=== PATIENT | female | born 1990 | race Caucasian/White ===

== ENCOUNTER 2017-04-04 16:05 | Emergency (ER) | payer SELFPAY ==
[2017-04-04 17:11] LABS: BASOPHILS 0.3 % (0-2); EOSINOPHILS 2.4 % (0-7); HEMATOCRIT 35.4 % (36.0-48.0); IMMATURE GRANULOCYTES 0.3 % (0-5); MCHC 31.1 g/dL (31.0-37.0); MCV 77.1 fL (80.0-100.0); MEAN PLATELET VOLUME 9.6 fL (7.4-10.4); PLATELET COUNT 229 10x3/uL (130-400); RBC 4.59 10x6/uL (4.00-5.40); RDW 18.1 % (11.5-14.5); WBC 7.4 10x3/uL (4.8-10.8)
[2017-04-04 17:22] LABS: APPEARANCE HAZY (CLEAR); BILIRUBIN NEGATIVE (NEGATIVE); COLOR DK YELLOW (YELLOW); GLUCOSE NEGATIVE (NEGATIVE); KETONE NEGATIVE (NEGATIVE); NITRITE NEGATIVE (NEGATIVE); PROTEIN NEGATIVE (NEGATIVE); UROBILINOGEN NORMAL (NORMAL)
[2017-04-04 17:28] LABS: WHITE CELLS - URINE 25-50 /hpf (0-5)
[2017-04-04 17:29] LABS: AMORPHOUS SEDIMENT <1+ /lpf (NONE SEEN); BACTERIA FEW /hpf (NONE SEEN)
[2017-04-04 18:16] LABS: ALBUMIN 3.4 g/dL (3.4-5.0); ALKALINE PHOSPHATASE 65 U/L (46-116); ALT (SGPT) 42 U/L (10-68); BILIRUBIN - TOTAL 0.11 mg/dL (0.2-1.3); CALC OSMOLALITY 276 mosm/kg (275-300); CALCIUM 8.7 mg/dL (8.5-10.1); CARBON DIOXIDE 22.9 mmol/L (21.0-32.0); CHLORIDE - SERUM 104 mmol/L (98-107); CREATININE - SERUM 0.6 mg/dL (0.6-1.3); GLUCOSE 92 mg/dL (74-106); POTASSIUM - SERUM 3.8 mmol/L (3.5-5.1); SODIUM 140 mmol/L (136-145); UREA NITROGEN 8 mg/dL (7-18); eGFR NON AFRICAN AMERICAN > 90 mL/min (90-120)
[2017-04-04 18:35] LABS: HCG - QUANTITATIVE (MATERNAL) 8060 mIU/mL
== END 2017-04-04 21:25 | disposition home or self-care (01) ==
LOC: D.ER 16:05
PROVIDERS: Emergency Medicine
DX: O23.41 Unspecified infection of urinary tract in pregnancy, first trimester (principal); Z3A.08 8 weeks gestation of pregnancy; R10.9 Unspecified abdominal pain

== ENCOUNTER 2017-07-30 18:29 | Outpatient (CLI) | payer MEDICAID ==
[2017-07-30 19:31] LABS: COLOR DK YELLOW (YELLOW)
[2017-07-30 19:32] LABS: APPEARANCE CLEAR (CLEAR); BILIRUBIN NEGATIVE (NEGATIVE); GLUCOSE NEGATIVE (NEGATIVE); KETONE NEGATIVE (NEGATIVE); NITRITE NEGATIVE (NEGATIVE); PROTEIN NEGATIVE (NEGATIVE); SPECIFIC GRAVITY 1.025 (1.005-1.020); UROBILINOGEN NORMAL (NORMAL)
== END 2017-07-30 19:57 | disposition home or self-care (01) ==
LOC: D.LDO 18:29
PROVIDERS: Obstetrics & Gynecology
DX: O26.899 Other specified pregnancy related conditions, unspecified trimester (principal); Z3A.00 Weeks of gestation of pregnancy not specified; R10.32 Left lower quadrant pain

== ENCOUNTER 2017-09-05 16:30 | Emergency (ER) | payer MEDICAID ==
[2017-09-05 18:02] LABS: BASOPHILS 0.1 % (0-2); EOSINOPHILS 0.3 % (0-7); HEMATOCRIT 35.6 % (36.0-48.0); HEMOGLOBIN 11.5 g/dL (12-16); IMMATURE GRANULOCYTES 0.5 % (0-5); LYMPHOCYTES 5.3 % (15-50); MCH 25.5 pg (26.0-34.0); MCHC 32.3 g/dL (31.0-37.0); MCV 78.9 fL (80.0-100.0); MONOCYTES 3.6 % (2-11); NEUTROPHILS 90.2 % (40-80); PLATELET COUNT 219 10x3/uL (130-400); RBC 4.51 10x6/uL (4.00-5.40); RDW 14.7 % (11.5-14.5); WBC 10.1 10x3/uL (4.8-10.8)
[2017-09-05 18:16] LABS: ALBUMIN 2.7 g/dL (3.4-5.0); ALKALINE PHOSPHATASE 116 U/L (46-116); ALT (SGPT) 16 U/L (10-68); BILIRUBIN - TOTAL 0.42 mg/dL (0.2-1.3); CALC OSMOLALITY 272 mosm/kg (275-300); CALCIUM 7.7 mg/dL (8.5-10.1); CHLORIDE - SERUM 104 mmol/L (98-107); CREATININE - SERUM 0.5 mg/dL (0.6-1.3); GLUCOSE 102 mg/dL (74-106); POTASSIUM - SERUM 3.6 mmol/L (3.5-5.1); PROTEIN - SERUM 6.5 g/dL (6.4-8.2); SODIUM 138 mmol/L (136-145); UREA NITROGEN 5 mg/dL (7-18); eGFR NON AFRICAN AMERICAN > 90 mL/min (90-120)
[2017-09-05 18:44] LABS: APPEARANCE CLEAR (CLEAR); BILIRUBIN NEGATIVE (NEGATIVE); COLOR YELLOW (YELLOW); GLUCOSE NEGATIVE (NEGATIVE); KETONE NEGATIVE (NEGATIVE); NITRITE POSITIVE (NEGATIVE); PROTEIN NEGATIVE (NEGATIVE); UROBILINOGEN NORMAL (NORMAL)
[2017-09-05 18:45] LABS: BACTERIA MANY /hpf (NONE SEEN); RED CELLS - URINE OCC /hpf (0-5); WHITE CELLS - URINE 0-5 /hpf (0-5)
== END 2017-09-05 20:45 | disposition home or self-care (01) ==
LOC: D.ER 16:30
PROVIDERS: Emergency Medicine
DX: N39.0 Urinary tract infection, site not specified (principal); A08.4 Viral intestinal infection, unspecified

== ENCOUNTER → 2017-09-23 22:23 | Outpatient (CLI) | payer MEDICAID ==
[2017-09-23 23:01] LABS: APPEARANCE HAZY (CLEAR); BACTERIA FEW /hpf (NONE SEEN); BILIRUBIN NEGATIVE (NEGATIVE); COLOR YELLOW (YELLOW); EPITHELIAL CELLS 0-5 /hpf (0-5); GLUCOSE NEGATIVE (NEGATIVE); KETONE SMALL mg/dL (NEGATIVE); NITRITE NEGATIVE (NEGATIVE); PROTEIN NEGATIVE (NEGATIVE); RED CELLS - URINE NONE SEEN /hpf (0-5); SPECIFIC GRAVITY 1.015 (1.005-1.020); UROBILINOGEN NORMAL (NORMAL)
== END | disposition home or self-care (01) ==
LOC: D.LDO 22:23
PROVIDERS: Obstetrics & Gynecology
DX: O26.893 Other specified pregnancy related conditions, third trimester (principal); Z3A.29 29 weeks gestation of pregnancy; M54.5 Low back pain; R10.9 Unspecified abdominal pain

== ENCOUNTER 2017-11-20 08:40 | Inpatient (IN) | payer MEDICAID ==
[~2017-11-20] VITALS: Ht 170.2 cm; Wt 103.4 kg
--- NOTE | ~2017-11-20 | OP ---
PATIENT NAME: IRIS WHELAN MEDICAL RECORD: [id number] :92 LOCATION:[facility] ADMISSION DATE:11/20/17 SURGEON: DEVYN WICK MD DATE OF OPERATION: 11/20/2017 Delivery Note PREDELIVERY DIAGNOSIS: Active labor at term. POSTDELIVERY DIAGNOSIS: Mother delivered at term. PROCEDURE: Vaginal delivery. ATTENDING PHYSICIAN: Devyn Wick MD ANESTHETIC: Continuous lumbar epidural. FINDINGS: Viable male infant, OP presentation with evidence of an asynclitic presentation during first stage of labor. Apgars are 99 and the weight is still pending at the time of this dictation. First-degree lacerations without repair. Placenta spontaneous and intact. ESTIMATED BLOOD LOSS: 300 cc. DISPOSITION: Mother and infant recovered in the room. TRANSINT:[id number] Voice Confirmation ID: [id number] DOCUMENT ID: [id number] DEVYN WICK MD at 0703 CC: [id number] DICTATION DATE: 11/20/171952 RESIN FILTERER: 11/20/172116 DIS IN 11/21/17 [address] [place] [address]
[2017-11-20 08:56] LABS: APPEARANCE CLEAR (CLEAR); BILIRUBIN NEGATIVE (NEGATIVE); COLOR YELLOW (YELLOW); GLUCOSE NEGATIVE (NEGATIVE); KETONE NEGATIVE (NEGATIVE); NITRITE NEGATIVE (NEGATIVE); PROTEIN NEGATIVE (NEGATIVE); UROBILINOGEN NORMAL (NORMAL)
[2017-11-20 09:58] LABS: HEMOGLOBIN 10.2 g/dL (12-16); MCH 23.2 pg (26.0-34.0); MCHC 30.9 g/dL (31.0-37.0); MCV 75.2 fL (80.0-100.0); MEAN PLATELET VOLUME 9.8 fL (7.4-10.4); RBC 4.39 10x6/uL (4.00-5.40); WBC 9.2 10x3/uL (4.8-10.8)
[2017-11-20 11:13] VITALS: BP 138/88; Ht 170.2 cm; Wt 103.4 kg
[2017-11-20] MEDS ORDERED: CYCLOBENZAPRINE10 MG PO (11:13)
[2017-11-20 22:23] VITALS: BP 137/82
[2017-11-21 06:59] LABS: HEMATOCRIT 30.5 % (36.0-48.0); HEMOGLOBIN 9.2 g/dL (12-16); MCH 22.5 pg (26.0-34.0); MCHC 30.2 g/dL (31.0-37.0); MCV 74.8 fL (80.0-100.0); MEAN PLATELET VOLUME 10.4 fL (7.4-10.4); RBC 4.08 10x6/uL (4.00-5.40); RDW 15.8 % (11.5-14.5); WBC 11.3 10x3/uL (4.8-10.8)
[2017-11-21 07:40] VITALS: BP 126/76
[2017-11-21 15:03] VITALS: BP 127/64
[2017-11-22 07:29] LABS: RAPID PLASMA REAGIN Non Reactive (Non Reactive)
== END 2017-11-21 20:30 | disposition home or self-care (01) | DRG 775 ==
LOC: D.LDO 08:40 → D.LD 10:27
PROVIDERS: Obstetrics & Gynecology
PROC: 10E0XZZ Delivery of Products of Conception, External Approach (ICD-10-PCS; principal; 2017-11-20)
DX: O32.2XX0 Maternal care for transverse and oblique lie, not applicable or unspecified (principal); O70.0 First degree perineal laceration during delivery; Z3A.37 37 weeks gestation of pregnancy; Z37.0 Single live birth

== ENCOUNTER → 2018-06-29 19:26 | Outpatient (CLI) | payer MEDICAID ==
[2017-11-20 11:13] VITALS: BMI 35.8
[~2018-06-29 19:26] MED LIST: CYCLOBENZAPRINE10 MG PO
== END | disposition home or self-care (01) ==
LOC: D.MAMMO 06-06 11:30
DX: Z12.31 Encounter for screening mammogram for malignant neoplasm of breast (principal)

== ENCOUNTER 2019-07-23 07:25 | Day surgery (SDC) | payer MEDICAID ==
[2019-07-20 13:13] LABS: BASOPHILS 0.5 % (0-2); EOSINOPHILS 4.9 % (0-7); HEMATOCRIT 42.6 % (36.0-48.0); HEMOGLOBIN 13.9 g/dL (12-16); IMMATURE GRANULOCYTES 0.2 % (0-5); LYMPHOCYTES 26.2 % (15-50); MCH 28.7 pg (26.0-34.0); MCHC 32.6 g/dL (31.0-37.0); MONOCYTES 6.2 % (2-11); PLATELET COUNT 211 10x3/uL (130-400); RBC 4.84 10x6/uL (4.00-5.40); RDW 13.4 % (11.5-14.5); WBC 8.5 10x3/uL (4.8-10.8)
[2019-07-20 13:26] LABS: CALC OSMOLALITY 279 mosm/kg (275-300); CALCIUM 8.9 mg/dL (8.5-10.1); CARBON DIOXIDE 26.5 mmol/L (21.0-32.0); CHLORIDE - SERUM 106 mmol/L (98-107); CREATININE - SERUM 0.7 mg/dL (0.6-1.3); SODIUM 142 mmol/L (136-145); UREA NITROGEN 11 mg/dL (7-18); eGFR NON AFRICAN AMERICAN > 90 mL/min (90-120)
[2019-07-20 13:27] LABS: GLUCOSE 65 mg/dL (74-106)
[~2019-07-23] VITALS: Ht 170.2 cm; Wt 98.4 kg
--- NOTE | ~2019-07-23 | OP ---
PATIENT NAME: IRIS WHELAN MEDICAL RECORD: [id number] :92 LOCATION:[facility] ADMISSION DATE: SURGEON: DEVYN DAMON MD DATE OF OPERATION: 07/23/2019 PREOPERATIVE DIAGNOSES: 1. Pelvic pain. 2. Dysfunctional uterine bleeding. POSTOPERATIVE DIAGNOSES: 1. Pelvic pain. 2. Dysfunctional uterine bleeding. PROCEDURES: 1. Diagnostic laparoscopy. 2. D&C. SURGEON: Devyn Damon MD ROAD MACHINE OPERATOR: Wojciech Hdez ANESTHESIOLOGIST: Dr. Feliz ANESTHESIA: General. FINDINGS: Uterus is enlarged and slightly boggy. Both tubes were unremarkable. Ovaries have smooth capsules. What was visualized of the abdominal anatomy was unremarkable. ESTIMATED BLOOD LOSS: Minimal. SPECIMENS REMOVED: Endometrial curettings. SPECIMEN DISPOSITION: Pathology. ESTIMATED BLOOD LOSS: Minimal. FLUIDS: 800 cc of lactated Ringer's. URINE OUTPUT: Quantity sufficient cath prior to this procedure. COMPLICATIONS: None. DRAINS: None. INDICATIONS: The patient is a 29-year-old multiparous female with a history of dyspareunia and pelvic pain. The patient also reports recent onset of dysfunctional bleeding. The patient is consented for diagnostic laparoscopy and dilation and curettage. DESCRIPTION OF PROCEDURE: After informed consent was assured, the patient was taken to the operating room where anesthetic was obtained. The patient is then placed in Yellofin stirrups and prepped and draped in usual sterile fashion. An incision was made at the umbilicus to accommodate a 5-mm trocar, which was inserted without difficulty and pneumoperitoneum was developed. With the OPERATIVE REPORT [id number] IRIS WHELAN patient in steep Trendelenburg position, the accessory ports placed 2 fingerbreadths above the symphysis in the midline and the bowel swept free of the pelvis. The above findings were encountered. After visualization of the abdomen and pelvis, the procedure was discontinued and the pneumoperitoneum was released. All trocars were removed and skin was closed with a subcuticular stitch and Dermabond applied. The legs were malpositioned for the vaginal portion of this case. An operative speculum was introduced in the vagina. The cervix grasped with a single-tooth tenaculum and then serially dilated to accommodate a #2 curette. This curette was passed gently to the fundus and withdrawn with good cry obtained throughout. Specimens were placed on Telfa and removed from the vaginal vault. A single-tooth tenaculum was removed and a ring forceps placed over the tenaculum site to obtain hemostasis. Sponge, lap, needle counts were correct times 2. The patient was awakened and went to the recovery room in stable condition with the removal of the ring forceps. TRANSINT:[id number] Voice Confirmation ID: [id number] DOCUMENT ID: [id number] DEVYN DAMON MD CC: [id number] DICTATION DATE: 07/23/19916 POLISHING PAD MOUNTER: 07/23/19 1106 [facility] [address] [place] [id number]
[~2019-07-23 07:25] MED LIST changes: +ALBUTEROL SULF8.5 GM INH; +BUSPIRONE HCL30 MG PO; +CALCIUM 600 +1 EAC3 PO; +GABAPENTIN300 MG PO; +HYDROCODON-ACE1 EAC7 PO; +LISINOPRIL-HCT1 EAC4 PO; +MELOXICAM 15MG PO; +ROPINIROLE HCL0.5 MG PO; +ZANAFLEX4 MG PO
--- NOTE | 2019-07-23 07:42 | NUR ---
VERIFIED BY TELEPHONE NO ANTIBIOTIC ORDERED PER DR. DAMON.
[2019-07-23 07:57] VITALS: BP 133/92; Ht 170.2 cm; Wt 98.4 kg
[2019-07-23 08:15] LABS: HCG URINE NEGATIVE (NEGATIVE)
--- NOTE | 2019-07-23 10:03 | NUR ---
9827 CONSULTED ANESTHESIA REGARDING INCREASED ANXIETY. PATIENT VERY TEARFUL. SHE STATES SHE HAS HISTORY OF ANXIETY. VERBAL ORDERS RECEIVED FROM EDE BEE CRNA / DR. CANTRELL TO ADMINISTER VERSED 2MG X1 NOW IN PACU. ORDERS RECEIVED AND IMPLEMENTED.
--- NOTE | 2019-07-23 13:15 | NUR ---
1130 MEDICATED IM FOR NAUSEA 1155 RECIEVED A FULL LIQ TRAY 1215 IV REMOVED AND NAUSEA EASING 1235 D/C HOME
== END 2019-07-23 12:35 | disposition home or self-care (01) ==
LOC: D.OPS 07:25 → D.PAN 08:00 → D.OPS 09:30
PROVIDERS: Anesthesiology; ATTEND Obstetrics & Gynecology
DX: R10.2 Pelvic and perineal pain (principal); N93.8 Other specified abnormal uterine and vaginal bleeding

== ENCOUNTER 2019-08-06 05:05 | Day surgery (SDC) | payer MEDICAID ==
[2019-08-03 10:17] LABS: HEMATOCRIT 44.7 % (36.0-48.0); HEMOGLOBIN 14.7 g/dL (12-16); LYMPHOCYTES 27.8 % (15-50); MCH 28.3 pg (26.0-34.0); MCHC 32.9 g/dL (31.0-37.0); MCV 86.1 fL (80.0-100.0); MEAN PLATELET VOLUME 10.3 fL (7.4-10.4); RBC 5.19 10x6/uL (4.00-5.40); RDW 13.1 % (11.5-14.5); WBC 6.7 10x3/uL (4.8-10.8)
[2019-08-03 10:26] LABS: PLATELET COUNT 293 10x3/uL (130-400)
[2019-08-03 10:30] LABS: UDS - AMPHET NEGATIVE QUAL (NEGATIVE); UDS - BARB NEGATIVE QUAL (NEGATIVE); UDS - BENZO NEGATIVE QUAL (NEGATIVE); UDS - COCAINE NEGATIVE QUAL (NEGATIVE); UDS - OPIATE NEGATIVE QUAL (NEGATIVE); UDS - PCP NEGATIVE QUAL (NEGATIVE); UDS - THC POSITIVE QUAL (NEGATIVE)
[2019-08-03 10:39] LABS: CALC OSMOLALITY 281 mosm/kg (275-300); CALCIUM 9.2 mg/dL (8.5-10.1); CARBON DIOXIDE 32.1 mmol/L (21.0-32.0); CHLORIDE - SERUM 104 mmol/L (98-107); CREATININE - SERUM 0.7 mg/dL (0.6-1.3); GLUCOSE 75 mg/dL (74-106); POTASSIUM - SERUM 3.8 mmol/L (3.5-5.1); SODIUM 142 mmol/L (136-145); UREA NITROGEN 12 mg/dL (7-18); eGFR NON AFRICAN AMERICAN > 90 mL/min (90-120)
[2019-08-06] VITALS (18 sets, daily range): BP systolic 101–137; BP diastolic 56–91; Ht 170.2 cm; Wt 99.1 kg
[~2019-08-06] VITALS: Ht 170.2 cm; Wt 99.1 kg
--- NOTE | 2019-08-06 06:14 | NUR ---
0605-PT. TEARFUL AND STATES "IV IS NOT RIGHT", IV DISCONTINUED, SITE WITHOUT SIGNS OF INFILTRATION OR INFECTION. COTTON BALL AND BANDAID APPLIED. DEFER TO ANESTHESIA.
[2019-08-06 06:17] LABS: HCG URINE NEGATIVE (NEGATIVE)
--- NOTE | 2019-08-06 10:19 | NUR ---
REC'D BACK TO ROOM 1273 FROM PACU, AWAKE, ALERT AND ORIENTED X4. TEARFUL, GRIMACING AND CLENCHING ABD. PT STATES THAT SHE "IS HURTING SO BAD." VSS. BREATH SOUNDS CLEAR AND EQUAL BILATERALLY. ABD SOFT, NONDISTENDED, BOWEL SOUNDS PRESENT AND HYPOACTIVE X4. C/O NAUSEA AT THIS TIME. 4 ABD INCISIONS NOTED (RLQ, LLQ, MID PUBIC REGION, AND UMIBILICUS), ALL INCISIONS WELL APPROXIMATED WITH GLUE INTACT, NO DRAINAGE NOTED AND NO S/S OF INFECTION NOTED. SCD'S PLACED ON BLE. ICE PACK PLACED. PT'S FATHER AT BEDSIDE. 500 MLS YELLOW URINE EMPTIED FROM RIVERA. BED IN LOW POSITION WITH SRUP X2. CALL LIGHT AND PHONE WITHIN REACH. WILL CONTINUE TO MONITOR.
--- NOTE | 2019-08-06 10:34 | NUR ---
PAIN 8/10, MEDS GIVEN PER EMAR. ICE CHIPS PROVIDED. PERICARE DONE. PADS AND CHUX CHANGED. PERIPAD PLACED. PT LIFTS BUTTOCKS WITHOUT DIFFICULTY. EMESIS BAG PROVIDED. V/S REMAIN STABLE. O2 DECREASED TO 2 L/MIN. WILL CONTINUE TO MONITOR.
--- NOTE | 2019-08-06 11:29 | NUR ---
PAIN NOW 5/10. DENIES NAUSEA. SPRITE PROVIDED PER REQUEST. 100 MLS CLEAR LIGHT YELLOW URINE EMPTIED FROM RIVERA, NO VAG BLEEDING/DISCHARGE NOTED. PT RESTING QUIETLY AND DENIES ADDITIONAL NEEDS. BED IN LOW POSITION WITH SRUP X2. CALL LIGHT AND PHONE WITHIN REACH. WILL CONTINUE TO MONITOR. INCENTIVE SPIROMETER DONE X5, COUGH AND DEEP BREATHING DONE WITH GOOD EFFORT. ADDITIONAL PILLOW PROVIDED PER PT REQUEST. VSS. WILL CONTINUE TO MONITOR.
--- NOTE | 2019-08-06 12:28 | NUR ---
PT CONTINUES TO DENY NAUSEA. REGULAR TRAY PROVIDED ORDERED. B/P CUFF AND SPO2 MONITOR REMOVED PER PT REQUEST TO EAT. GABAPENTIN GIVEN PER ORDER AND PT EDUCATED ON MED, VERBALIZES UNDERSTANDING. I&O DONE. SPRITES AND ICE CHIPS PROVIDED. NO VAG BLEEDING/DISCHARGE NOTED. LIGHTS ON PER PT REQUEST. POC DISCUSSED, VERBALIZES UNDERSTANDING. SCD'S ON BLE.
--- NOTE | 2019-08-06 13:04 | NUR ---
CALLS VIA CALL LIGHT. RN TO BEDSIDE, PT DRY HEAVING. REPORTS FEELING NAUSEATEF OLLOWING EATING PART OF LUNCH TRAY AND C/O FEELING HOT. VSS. BLANKET REMOVED. ROOM TEMP DECREASED. I&O DONE. SALAD TAKEN FROM ROOM, PT INSTRUCTED THAT DIET WOULD BE BACK TO CLEAR LIQUIDS AND ADVANCED TOLERTAED, VERBALIZES UNDERSTANDING. SCD'S ON BLE. BED IN LOW POSITION WITH SRUP X2. CL AND PHONE WITHIN REACH.
--- NOTE | 2019-08-06 14:08 | NUR ---
IN ROOM TO CHANGE IVF, ZOFRAN GIVEN FOR NAUSEA, INQUIRED REGARDING PAIN LEVEL, STATES AT 3-4 NOW. ASKED IF READY FOR PAIN MED. STATED "NOT YET", COMFORT MEASURES PROVIDED, PILLOW PLACED TO ABDOMEN. NO FURTHER NEEDS VOICED.
--- NOTE | 2019-08-06 14:46 | NUR ---
C/O ABD AND INCISIONAL DISCOMFORT 7-01/06, HYDROMORPHONE GIVEN PER ORDER AND PT REQUEST. DENIES NAUSEA. CHICKEN BROTH AND JELLO PROVIDED. INCENTIVE SPIROMETER DONE AND COUGH AND DEEP BREATHING DONE. PT REPOSITIONS TO R SIDE INDEPENDENTLY. SCD'S REMAIN ON BLE. WILL CONTINUE TO MONITOR.
--- NOTE | 2019-08-06 14:53 | NUR ---
DR. DAMON CALLS UNIT. UPDATE ON PT GIVEN. ORDERS REC'D TO KEEP PT ON CLEAR LIQUIDS UNTIL P 1900.
--- NOTE | 2019-08-06 15:06 | NUR ---
TORADOL GIVEN PER ORDER. DENIES ADDITIONAL NEEDS. PT UPDATED ON POC CHANGES, VERBALIZES UNDERSTANDING AND DENIES ADDITIONAL NEEDS. BED IN LOW POSITION WIHT SRUP X2. CALL LIGHT AND PHONE WITHIN REACH. LINENS PROVIDED FOR PT'S FATHER PER REQUEST.
--- NOTE | 2019-08-06 15:22 | NUR ---
PAIN REASSESSMENT COMPLETED, LAYING ON R SIDE RESTING WITH EYES CLOSED. RESP AND UNLABORED, NO S/S OF DISTRESS NOTED. BED IN LOW POSITION WITH SRUP X2. CALL LIGHT AND PHONE WITHIN REACH. WILL CONTINUE TO MONITOR.
--- NOTE | 2019-08-06 16:06 | NUR ---
REMAINS ON R SIDE. RESTING WITH EYES CLOSED, RESP REGULAR AND UNLABORED, NO S/S OF DISTRESS NOTED. BED IN LOW POSITION WITH SRUP X2. CALL LIGHT AND PHONE WITHIN REACH. WILL CONTINUE TO MONITOR.
--- NOTE | 2019-08-06 17:13 | NUR ---
RIVERA D/C'D WITH 900 MLS CLEAR LIGHT YELLOW URINE PRESENT. OOB PER PT REQUEST AND TO BR WITH STANDBY ASSIST, STEADY GAIT NOTED. PERICARE DONE PER PT. GOWN AND LINENS CHANGED. PAD AND PANTIES PROVIDED. AMBULATORY IN ROOM, REQUEST TO SIT ON EDGE OF BED. DENIES NAUSEA AND REQUESTS TO EAT REGULAR DIET. WILL NOTIFY DR. ADMON. BED IN LOW POSITION WITH SRUP X2. CALL LIGHT PLACED WITHIN PT REACH. STATES THAT HER DAD WILL BE BRINGING HER CLOTHES SHORTLY. ENCOURAGED TO AMB IN HALLWAY AND CALL FOR ASSIST PRN, VERBALIZES UNDERSTANDING. INSTRUCTED ON NEED TO MEASURE AT LEAST 2-3 VOIDS. ICE WATER, POPICLE, JELLO, AND SPRITE PROVIDED PER REQUEST. NEW ICE PACK PROVIDED.
--- NOTE | 2019-08-06 17:45 | NUR ---
SITTING UP ON EDGE OF BED. C/O ABD AND INCISIONAL DISCOMFORT 7-810, 2 TABS PERCOCET GIVEN PER ORDER. PT CONTINUES TO DENY NAUSEA. EDUCATED ON MEDS, VERBALIZES UNDERSTANDING AND DENIES QUESTIONS.
--- NOTE | 2019-08-06 17:58 | NUR ---
DR. DAMON UPDATE ON PT PROGRESS AND NO LONGER C/O NAUSEA AND IS REQUESTING TO EAT. ORDERS REC'D TO ADVANCE DIET TO REGULAR DIET.
--- NOTE | 2019-08-06 18:30 | NUR ---
1ST UNIT PRBC TRANSFUSION COMPLETED. VSS. NO S/S OF TRANSFUSION REACTION NOTED. SWITCHED TO NS TO FLUSH. FUNDUS REMAINS FIRM, MIDLINE AND U2 WITH SCANT SEROSANGUINEOUS LOCHIA NOTED, NO CLOTS. PERICARE DONE. 300 MLS CLEAR LIGHT YELLOW EMPTIED FROM RIVERA. WILL CONTINUE TO MONITOR AND ASSIST PRN.
--- NOTE | 2019-08-06 19:13 | NUR ---
PM ROUNDS MADE, RECEIVED SHIFT REPORT FROM ANGELIQUE SMITH RN, INFORMED PT THAT I WILL BE MOVING HER TO ANOTHER ROOM, PT INQUIRES ABOUT WHAT TIME, BECAUSE SHE WANTED TO TAKE A QUICK NAP BEFORE HER FATHER CAME BACK, INFORMED PT THAT IT WILL BE IN ABOUT 45 MINUTES OR SO, PT STATES "THAT SOUNDS GOOD, THAT WILL GIVE ME PLENTY OF NAP TIME", PT DENIES NEEDS AT THIS TIME
--- NOTE | 2019-08-06 20:15 | NUR ---
PT AWAKE, READY TO MOVE TO ANOTHER ROOM, PT TRANSFERRED VIA AMB, GAIT STEADY, WITH ALL BELONGINGS TO ROOM 1220, PT TO BED, ASSESSMENT PER FLOW SHEET, VS OBTAINED, 3 LOWER LAP AND 1 UMB INC WITH DERMABOND CDI WITH NO DRAINAGE NOTED, FRESH ICE PACK TO ABD, PT REPORTS FLATUS, NO BM, VOIDED 300 MLS OF CLEAR YELLOW URINE BEFORE TRANSFER, AND REPORTS DIME SIZE BLEEDING ON SHANA PAD, PT RATES CRAMPING 09/06, STATES "I'M REALLY OK RIGHT NOW", INFORMED PT THAT I WILL ADM HER TORADOL AND NEURONTIN SHORTLY, PT VERBALIZES UNDERSTANDING, PT DENIES FURTHER NEEDS, PT ORIENTED TO ROOM, BED IN LOW POSITION, SIDE RAILS X 2, CALL LIGHT IN REACH
--- NOTE | 2019-08-06 21:11 | NUR ---
PT SITTING UP IN BED TALKING ON CELL PHONE, ADM NEURONTIN PO PER MD ORDERS, SEE EMAR, SALINE LOCK FLUSHED, ADM TORADOL IN 5MLS OF NS, ADM SIVP, SALINE LOCK FLUSHED, PER MD ORDERS, SEE EMAR, PT JACEY WELL, PT DENIES FURTHER NEEDS
--- NOTE | 2019-08-06 22:07 | NUR ---
PT WET SANDER LIGHT, PT REQUESTED AND ADM PERCOCET PER MD ORDERS, SEE EMAR, PT STATES "IT'S BED TIME NOW", SCD'S APPLIED AND WORKING PROPERLY, PT DENIES FURTHER NEEDS, BEDDING PROVIDED TO PT'S DAD
[2019-08-07] VITALS: BP 92/68
--- NOTE | 2019-08-07 | NUR ---
PT RESTING WITH EYES CLOSED, AROUSES TO SOFT VERBAL STIMULATION, VS OBTAINED, SCD'S DISCONNECTED, PT UP TO BR WITH ASSISTANCE, GAIT STEADY, VOIDED 400 MLS OF CLEAR YELLOW URINE BY SELF WITH NO DIFFICULTY, PT BACK TO BED, SCD'S RECONNECTED AND WORKING PROPERLY, FRESH ICE PACK AND H20 PROVIDED, PT C/O INC PAIN AND CRAMPING, INFORMED PT THAT PAIN MED WAS DUE AT 2AM AND TORADOL AT 3AM AND THAT I CAN EITHER ADM PAIN MED AT 2AM OR JUST WAIT AND ADM BOTH AT 3AM, PT INST TO USE CALL LIGHT IF AWAKE AT 2AM FOR PERCOCET, PT VERBALIZES UNDERSTANDING, DENIES FURTHER NEEDS AT THIS TIME, PT'S DAD ASLEEP AT BEDSIDE
--- NOTE | 2019-08-07 01:30 | NUR ---
PT RESTING WITH EYES CLOSED, RESP QUIET, NO DISTRESS NOTED, LEFT UNDISTURBED AT THIS TIME, PT'S DAD ASLEEP AT BEDSIDE
[2019-08-07 03:24] VITALS: BP 107/53
--- NOTE | 2019-08-07 03:24 | NUR ---
PT RESTING WITH EYES CLOSED, AROUSES TO SOFT VERBAL STIMULATION, VS OBTAINED, SALINE LOCK FLUSHED, ADM TORADOL DILUTED IN 5MLS OF NS, SIVP, SALINE LOCK FLUSHED, AND ADM PERCOCET PO PER MD ORDERS, SEE EMAR, PT UP TO BR, GAIT STEADY, VOIDED WITH NO DIFFICULTY, PT BACK TO BED, SCD'S RECONNECTED, FRESH ICE PACK AND SMALL SPLINT PILLOW PROVIDED, PT DENIES FURTHER NEEDS, PT'S DAD AT BEDSIDE
--- NOTE | 2019-08-07 05:20 | NUR ---
PT RESTING WITH EYES CLOSED, AROUSES TO SOFT VERBAL STIMULATION, ADM NEURONIN PO PER MD ORDERS, SEE EMAR, SCD'S CONTINUE ON AND WORKING PROPERLY, PT DENIES NEEDS AT THIS TIME, PT'S DAD ASLEEP AT BEDSIDE
[2019-08-07 07:25] VITALS: BP 116/77
--- NOTE | 2019-08-07 07:31 | NUR ---
RINGS CALL LIGHT- REQUESTING SCD'S OFF SO CAN GO TO BATHROOM TO VOID. VS DONE ASSESSMENT DONE. ABD SOFT-BOWEL SOUNDS HYPOACTIVE. STATES IS PASSING GAS. LAP INCISIONS WITH DERMABOND- ALL APPEARANCE WNL. DENIES NEEDS.
--- NOTE | 2019-08-07 08:29 | NUR ---
DR DAMON HERE TO SEE PT- NEW ORDERS RECEIVED.
--- NOTE | 2019-08-07 09:35 | NUR ---
SALINE LOCK REMOVED WITHOUT INCIDENT- CATH TIP INTACT. BANDAIDE PLACED.
[2019-08-07] MEDS ORDERED: PERCOCET 7.5/321 TAB PO (09:45)
[2019-08-07] MEDS ORDERED: NEURONTIN 300300 MG PO (09:46)
[2019-08-07] MEDS ORDERED: MOBIC7.5 MG PO (09:47)
--- NOTE | 2019-08-07 09:49 | NUR ---
DISCHARGE INST VERBAL AND WRITTEN GIVEN. SCRIPTS X3 GIVEN ALONG WITH PT MED REC- PT STATES UNDERSTANDING OF USE. APPOINTMENT CARD GIVEN.POST OP LAP SURGERY INST, POST HYST INST GIVEN. PT STATES UNDERSTANDING.
--- NOTE | 2019-08-07 10:05 | NUR ---
REQUESTS PAIN MEDICATION BEFORE DISCHARGE. RATES PAIN IN ABD A 4 ON SCALE OF 0-10. MED GIVEN.
--- NOTE | 2019-08-07 10:12 | NUR ---
DENIES ANY QUESTIONS CONCERNING DISCHARGE INFORMATION. PT STATES SHE IS READY TO GO HOME.
--- NOTE | 2019-08-07 10:16 | NUR ---
TO AUTO VIA W/C PER VOLUNTEER.
--- NOTE | 2019-08-07 11:42 | OP ---
PATIENT NAME: IRIS WHELAN MEDICAL RECORD: [id number] :92 LOCATION:[facility].1220 ADMISSION DATE: SURGEON: CHUCK DAMON MD DATE OF OPERATION: 08/06/2019 PREOPERATIVE DIAGNOSES: 1. Pelvic pain. 2. Dysmenorrhea. POSTOPERATIVE DIAGNOSES: 1. Pelvic pain. 2. Dysmenorrhea. PROCEDURE: 1. Diagnostic laparoscopy. 2. Total laparoscopic hysterectomy. 3. Bilateral salpingectomy. SURGEON: Chuck Damon MD [facility] PROVIDER: Valerio DOCTOR OF RADIOLOGY: Geeta Jack. ANESTHESIOLOGIST: Dr. Polanco ANESTHESIA: General. FINDINGS: Uterus is enlarged and boggy. Tubes and ovaries are unremarkable with the exception of some smoothing of the ovarian capsules bilaterally. SPECIMENS REMOVED: Uterus with bilateral tubes and cervix. SPECIMEN DISPOSITION: All specimens to pathology. ESTIMATED BLOOD LOSS: Less than or equal to 50 mL. FLUIDS: 1 liter of lactated Ringer's. URINE OUTPUT: 600 clear urine. COMPLICATIONS: None. DRAINS: Woody to gravity, discontinued in PACU. INDICATIONS: The patient is a 29-year-old female with no future fertility desires who presents with complaints of pelvic pain and dyspareunia. The patient has severe dysmenorrhea and has been offered conservative therapy. The patient declines any hormonal therapy or conservative management with analgesics and requests definitive therapy. The patient is consented for a total laparoscopic hysterectomy with bilateral salpingectomy and any indicated procedure. DESCRIPTION OF PROCEDURE: After informed consent was assured, the patient was taken to the operating room where anesthetic was obtained without difficulty. OPERATIVE REPORT [id number] IRIS WHELAN The patient is now prepped and draped in the usual sterile fashion. An incision was made at the umbilicus to accommodate a 5-mm trocar, which was inserted without difficulty and pneumoperitoneum was developed. Uterine manipulator has been placed. Accessory ports are now placed in the right and left lower quadrants as 5 mm ports and an 11-mm port is in the midline. Through the left side port, a grasper was inserted. The right tube was elevated. From the right lower quadrant port, a Thunderbeat coagulation cutter was inserted and then the mesosalpinx serially compressed, coagulated, and from its attachments to the adnexa. This dissection was carried out until the middle of the uterine ovarian ligament was reached and this is now grasped compressed, coagulated, and . The dissection continued across the round ligament and the anterior leaf of the broad ligament was now opened. The bladder flap was developed to the midline and the posterior leaf taken down. Vascular bundle of the right side was identified. The blood supply on the right is now compressed, coagulated, and . The attention was now directed to the left side. The left tube was elevated in similar fashion, and from the left lower quadrant port, a Thunderbeat coagulation cutter was used to compress, coagulate, and separate the tissue attaching the left tube to the adnexa. Dissection was carried out to the mid uterine ovarian ligament, which was now compressed, coagulated, and . The dissection was carried out over the round ligament and the anterior leaf of the broad ligament was opened and bladder flap now fully developed. The posterior leaf was dissected down until the vascular bundle of the left is easily identified. The blood supply on the left side was now compressed, coagulated, and . Laparoscopic peanut was used to further push the bladder down away from the intended cuff. Using the Thunderbeat coagulation cutter, the dissection begins at the 12 o'clock position and concludes at 6 o'clock going counterclockwise. The coagulation cutter was now inserted from the lower right side and the dissection concludes from 12 to 6 in a clockwise manner. The uterus was pulled into the vagina and the pneumoperitoneum maintained. The Stratafix [address]-2 needle was now inserted in the midline port. A [place] graspers inserted in the midline port and another to the left port. A self righting needle compressed air pile driver operator was placed inside the pelvis. The Stratafix is now placed through the vaginal cuff including the left uterosacral ligaments on the left hand side and pulled through the loop. A running stitch was now carried across the vaginal cuff until it is completely closed. The Stratafix is now cut. The pelvis was irrigated, irrigant removed. Inspection of the operative field revealed adequate hemostasis. The pneumoperitoneum was now released. Trocars were removed under direct visualization and then the primary trocar removed. Sponge, lap, and needle counts correct times 2. The skin was closed with 4-0 chromic on a PS2. Dermabond was applied. The patient will be taken to women services for recovery. TRANSINT:[id number] Voice Confirmation ID: [id number] DOCUMENT ID: [id number] CHUCK DAMON MD at 1142 CC: [id number] DICTATION DATE: 08/06/19909 OIL PROSPECTING OBSERVER: 08/06/19 190 [facility] [address] [place] [address]
== END 2019-08-07 10:20 | disposition home or self-care (01) ==
LOC: D.OPS 05:05 → D.PAN 07:00 → D.OPS 09:00 → D.LD 09:39 → D.WS 21:00 → D.OPS 08-07 10:20
PROVIDERS: ATTEND Obstetrics & Gynecology
DX: R10.2 Pelvic and perineal pain (principal); N94.6 Dysmenorrhea, unspecified; N80.0 Endometriosis of uterus; R01.1 Cardiac murmur, unspecified